=== PATIENT | female | born 1995 | race African-American/Black ===

== ENCOUNTER 2022-11-29 20:45 | Inpatient (IN) | payer OTHER ==
[2022-11-29] MEDS ORDERED: ELECTROLYTE-148 SOLN 1,000 ML IV ONE (21:45)
[2022-11-29] MEDS ORDERED: DINOPROSTONE 10 MG VAGINAL SUPPOSITORY VG ONE (21:45)
[2022-11-29 21:58] VITALS: BMI 27.8
[2022-11-29] MEDS ORDERED: ZOLPIDEM TARTRATE 5 MG TABLET PO ONE (22:00)
[2022-11-30] MEDS ORDERED: AMPICILLIN SODIUM 2 GM VIAL ONE (03:48)
[2022-11-30] MEDS ORDERED: ZOLPIDEM TARTRATE 5 MG TABLET ONE (03:58)
[2022-11-30] MEDS ORDERED: AMPICILLIN - 2 GM in SODIUM CHLORIDE 100 ML IVPB ONE (04:00)
[2022-11-30] MEDS ORDERED: ELECTROLYTE-148 SOLN 1,000 ML IV SCH (04:00)
[2022-11-30] MEDS ORDERED: PROMETHAZINE HCL 25 MG/1 ML VIAL IVPB ONE (06:00)
[2022-11-30] MEDS ORDERED: BUTORPHANOL TARTRATE 1 MG/ML VIAL IVPB ONE (06:00)
[2022-11-30] MEDS: AMPICILLIN - 1 GM in SODIUM CHLORIDE 100 ML IVPB SCH ×3 (09:00→16:10)
[2022-11-30] MEDS ORDERED: OXYTOCIN 30 UNITS in 0.9% NS 30 UNIT/500 ML INFUS.BAG IVPB SCH (09:45)
[2022-11-30] MEDS ORDERED: AMPICILLIN SODIUM 1 GM VIAL ONE ×3 (10:06→15:58)
[2022-11-30] MEDS ORDERED: OXYTOCIN 30 UNITS in 0.9% NS 30 UNIT/500 ML INFUS.BAG IVPB ONE (10:06)
[2022-11-30] MEDS ORDERED: OXYTOCIN 20 UNITS in 0.9% NS 20 UNIT/1,000 ML INFUS.BAG IV ONE (15:29)
[2022-11-30] MEDS ORDERED: LIDOCAINE HCL 1% PRESERVATIVE FREE - 30ML VIAL ONE (15:29)
[2022-11-30] MEDS ORDERED: morphine SULFATE/PF 1 MG/2 ML (2cc Syringe - QUVA) ONE (19:01)
[2022-11-30] MEDS ORDERED: FENTANYL CITRATE/PF 50 MCG/ML VIAL ONE (19:01)
[2022-11-30] MEDS ORDERED: OXYTOCIN 10 UNITS/ML VIAL ONE (20:29)
[2022-11-30] MEDS ORDERED: KETOROLAC TROMETHAMINE 60 MG/2 ML VIAL ONE (20:29)
[2022-11-30] MEDS ORDERED: ONDANSETRON 4 MG/2 ML VIAL ONE (20:29)
[2022-11-30] MEDS ORDERED: ceFAZolin SODIUM 1 GM VIAL ONE (20:29)
[2022-11-30] MEDS ORDERED: ONDANSETRON 4 MG/2 ML VIAL IVPB PRN (20:57)
[2022-11-30] MEDS ORDERED: SENNOSIDES/DOCUSATE COMBO (SENNA PLUS) TABLET (UD) PO PRN (20:57)
[2022-11-30] MEDS ORDERED: ACETAMINOPHEN INJECTION 100 ML IVPB ONE (21:57)
[2022-11-30] MEDS: ACETAMINOPHEN 1000 MG/100 ML BAG IVPB SCH (22:00)
[2022-11-30] MEDS: OXYTOCIN 20 UNITS in 0.9% NS 20 UNIT/1,000 ML INFUS.BAG IV SCH (22:45)
[2022-11-30] MEDS ORDERED: LABETALOL HCL 100 MG TABLET (FP) ONE (22:58)
[2022-11-30] MEDS ORDERED: LABETALOL HCL 200 MG TABLET (FP) PO ONE (23:00)
[2022-12-01] MEDS: ACETAMINOPHEN 1000 MG/100 ML BAG IVPB SCH ×3 (03:47→17:03)
[2022-12-01] MEDS: CEFAZOLIN SODIUM 2 GM in DEXTROSE 5%-WATER 100 ML IVPB SCH ×3 (04:05→20:49)
[2022-12-01] MEDS: IBUPROFEN 800 MG/8 ML IJ IVPB SCH ×3 (05:58→21:48)
[2022-12-01] MEDS: SIMETHICONE 80 MG TAB.CHEW (FP) PO PRN ×2 (05:59→20:49)
[2022-12-01 08:27] LABS: BASO % 0.3 % (0-2.0); HEMATOCRIT 28.7 % (32.4-45.2); HEMOGLOBIN 9.3 GM/dL (10.7-15.3); LYMPH % 10.7 % (8-40); MCH 30.9 pg (25.7-33.7); MCHC 32.5 g/dl (32.0-36.0); MEAN CELL VOLUME 94.9 fl (80-96); MEAN PLT VOLUME 12.1 fl (7.5-11.1); MONO % 7.8 % (3.8-10.2); NEUT % 81.2 % (42.8-82.8); PLATELET COUNT 99 10^3/uL (134-434); RBC 3.03 M/mm3 (3.60-5.2); RDW 14.5 % (11.6-15.6); WHITE BLOOD COUNT 13.8 K/mm3 (4.0-10.0)
[2022-12-01] MEDS: DOCUSATE SODIUM 100 MG CAPSULE (FP) PO SCH ×3 (09:36→22:16)
[2022-12-01] MEDS: OXYTOCIN 20 UNITS in 0.9% NS 20 UNIT/1,000 ML INFUS.BAG IV SCH (11:30)
[2022-12-01] MEDS ORDERED: oxyCODONE HCL 5 MG TABLET PO PRN (19:00)
[2022-12-01] MEDS ORDERED: BISACODYL 10 MG SUPP.RECT RC PRN (20:57)
[2022-12-01] MEDS ORDERED: LABETALOL HCL 200 MG TABLET (FP) PO ONE (22:15)
[2022-12-01] MEDS: HEPARIN NA (PORCINE) 5,000 UNITS/ML 1ML VIAL SQ SCH (22:16)
[2022-12-01] MEDS: AMPICILLIN - 1 GM in SODIUM CHLORIDE 100 ML IVPB SCH (23:02)
[2022-12-02] MEDS: DOCUSATE SODIUM 100 MG CAPSULE (FP) PO SCH ×3 (06:44→21:32)
[2022-12-02] MEDS: IBUPROFEN 600 MG TABLET (FP) PO PRN ×3 (08:53→21:31)
[2022-12-02] MEDS: SIMETHICONE 80 MG TAB.CHEW (FP) PO PRN ×2 (08:54→21:32)
[2022-12-02] MEDS: HEPARIN NA (PORCINE) 5,000 UNITS/ML 1ML VIAL SQ SCH ×2 (10:51→22:25)
[2022-12-02] MEDS: ACETAMINOPHEN 500 MG TABLET (FP) PO PRN ×2 (10:52→18:23)
[2022-12-02] MEDS: FERROUS SO4 325 MG TABLET (FP) PO SCH (17:55)
[2022-12-02] MEDS: OXYTOCIN 20 UNITS in 0.9% NS 20 UNIT/1,000 ML INFUS.BAG IV SCH (20:24)
[2022-12-02 21:52] LABS: BASO % 0.4 % (0-2.0); EOS % 0.8 % (0-4.5); HEMATOCRIT 29.6 % (32.4-45.2); HEMOGLOBIN 9.8 GM/dL (10.7-15.3); LYMPH % 15.3 % (8-40); MCH 30.6 pg (25.7-33.7); MCHC 33.1 g/dl (32.0-36.0); MEAN CELL VOLUME 92.7 fl (80-96); MEAN PLT VOLUME 10.3 fl (7.5-11.1); MONO % 7.2 % (3.8-10.2); NEUT % 76.3 % (42.8-82.8); PLATELET COUNT 152 10^3/uL (134-434); RDW 14.4 % (11.6-15.6); WHITE BLOOD COUNT 12.8 K/mm3 (4.0-10.0)
[2022-12-03] MEDS: SIMETHICONE 80 MG TAB.CHEW (FP) PO PRN ×2 (03:22→19:15)
[2022-12-03] MEDS: IBUPROFEN 600 MG TABLET (FP) PO PRN ×2 (06:15→19:15)
[2022-12-03] MEDS: DOCUSATE SODIUM 100 MG CAPSULE (FP) PO SCH ×3 (06:15→21:13)
[2022-12-03] MEDS: FERROUS SO4 325 MG TABLET (FP) PO SCH ×2 (08:25→17:06)
[2022-12-03] MEDS: ACETAMINOPHEN 500 MG TABLET (FP) PO PRN (10:05)
[2022-12-03] MEDS: HEPARIN NA (PORCINE) 5,000 UNITS/ML 1ML VIAL SQ SCH ×2 (10:06→21:13)
[2022-12-03] MEDS ORDERED: LABETALOL HCL 100 MG TABLET (FP) PO PRN (10:12)
[2022-12-03] MEDS ORDERED: LABETALOL HCL 200 MG TABLET (FP) PO PRN ×3 (15:40→21:41)
[2022-12-03] MEDS ORDERED: LABETALOL HCL 100 MG TABLET (FP) PO STA (15:41)
[2022-12-03] MEDS ORDERED: LABETALOL HCL 100 MG TABLET (FP) PO ONE (21:15)
[2022-12-04] MEDS: IBUPROFEN 600 MG TABLET (FP) PO PRN ×2 (01:31→19:30)
[2022-12-04] MEDS: LABETALOL HCL 100 MG TABLET (FP) PO PRN ×3 (01:32→19:30)
[2022-12-04] MEDS: DOCUSATE SODIUM 100 MG CAPSULE (FP) PO SCH ×3 (06:54→22:00)
[2022-12-04] MEDS ORDERED: NIFEdipine 10 MG CAPSULE (FP) PO ONE (07:00)
[2022-12-04] MEDS ORDERED: MAGNESIUM 4GM/H20 - 4 GM/100 ML IVPB IVPB SCH ×2 (07:45→07:48)
[2022-12-04] MEDS ORDERED: SODIUM CHLORIDE 1,000 ML IV SCH ×2 (08:00→23:30)
[2022-12-04] MEDS ORDERED: MAGNESIUM 4GM/H20 - 4 GM/100 ML IVPB IVPB ONE (08:06)
[2022-12-04 08:09] LABS: HEMOGLOBIN 9.9 GM/dL (10.7-15.3); MCH 31.7 pg (25.7-33.7); MCHC 34.1 g/dl (32.0-36.0); MEAN CELL VOLUME 92.8 fl (80-96); MEAN PLT VOLUME 9.8 fl (7.5-11.1); PLATELET COUNT 196 10^3/uL (134-434); RBC 3.12 M/mm3 (3.60-5.2); RDW 14.5 % (11.6-15.6); WHITE BLOOD COUNT 10.4 K/mm3 (4.0-10.0)
[2022-12-04 08:31] LABS: POTASSIUM 3.1 mmol/L (3.5-5.1)
[2022-12-04 08:34] LABS: ALBUMIN 2.5 g/dl (3.4-5.0); BLOOD UREA NITROGEN 4.7 mg/dL (7-18); CALCIUM 8.1 mg/dL (8.5-10.1)
[2022-12-04 08:37] LABS: CREATININE 0.4 mg/dL (0.55-1.3)
[2022-12-04 08:39] LABS: BILIRUBIN,TOTAL 0.4 mg/dL (0.2-1); TOT PROT 6.1 g/dl (6.4-8.2)
[2022-12-04] MEDS ORDERED: MAGNESIUM SULFATE 20GM/500ML - 20 GM/500 ML INFUS.BAG ONE ×2 (08:53→18:39)
[2022-12-04] MEDS: MAGNESIUM SULFATE 20GM/500ML - 20 GM/500 ML INFUS.BAG IVPB SCH ×3 (09:00→18:48)
[2022-12-04] MEDS ORDERED: FERROUS SO4 325 MG TABLET (FP) ONE ×2 (09:09→19:19)
[2022-12-04] MEDS: FERROUS SO4 325 MG TABLET (FP) PO SCH ×2 (09:13→19:30)
[2022-12-04] MEDS ORDERED: LABETALOL HCL 100 MG TABLET (FP) ONE ×2 (11:27→19:20)
[2022-12-04] MEDS: HEPARIN NA (PORCINE) 5,000 UNITS/ML 1ML VIAL SQ SCH ×2 (12:55→22:00)
[2022-12-04] MEDS ORDERED: ACETAMINOPHEN 500 MG TABLET (FP) ONE (15:20)
[2022-12-04] MEDS: ACETAMINOPHEN 500 MG TABLET (FP) PO PRN (15:25)
[2022-12-04] MEDS ORDERED: IBUPROFEN 600 MG TABLET (FP) PO ONE ×2 (18:13→19:20)
[2022-12-05] MEDS ORDERED: MAGNESIUM SULFATE 20GM/500ML - 20 GM/500 ML INFUS.BAG ONE (03:27)
[2022-12-05] MEDS: LABETALOL HCL 100 MG TABLET (FP) PO PRN (05:00)
[2022-12-05] MEDS: MAGNESIUM SULFATE 20GM/500ML - 20 GM/500 ML INFUS.BAG IVPB SCH (05:00)
[2022-12-05] MEDS ORDERED: LABETALOL HCL 100 MG TABLET (FP) ONE (05:02)
[2022-12-05] MEDS ORDERED: IBUPROFEN 600 MG TABLET (FP) PO ONE (05:05)
[2022-12-05] MEDS: IBUPROFEN 600 MG TABLET (FP) PO PRN (05:10)
[2022-12-05] MEDS: DOCUSATE SODIUM 100 MG CAPSULE (FP) PO SCH ×3 (06:05→21:59)
[2022-12-05] MEDS: NIFEdipine E.R. 30 MG TABLET PO SCH ×2 (07:30→10:11)
[2022-12-05 08:43] VITALS: RESP 18
[2022-12-05] MEDS: FERROUS SO4 325 MG TABLET (FP) PO SCH ×2 (09:10→17:43)
[2022-12-05] MEDS ORDERED: FERROUS SO4 325 MG TABLET (FP) ONE (09:17)
[2022-12-05] MEDS: HEPARIN NA (PORCINE) 5,000 UNITS/ML 1ML VIAL SQ SCH ×3 (10:12→22:00)
[2022-12-05] MEDS ORDERED: ACETAMINOPHEN 500 MG TABLET (FP) ONE (10:40)
[2022-12-05] MEDS: ACETAMINOPHEN 500 MG TABLET (FP) PO PRN (10:40)
[2022-12-05] MEDS: LABETALOL HCL 200 MG TABLET (FP) PO SCH ×2 (13:42→22:20)
[2022-12-05] MEDS ORDERED: ACETAMINOPHEN 325 MG TABLET (FP) PO ONE (22:30)
[2022-12-05] MEDS ORDERED: NIFEdipine 10 MG CAPSULE (FP) PO ONE (22:30)
[2022-12-06] MEDS: DOCUSATE SODIUM 100 MG CAPSULE (FP) PO SCH ×2 (06:14→13:34)
[2022-12-06] MEDS: LABETALOL HCL 200 MG TABLET (FP) PO SCH ×2 (06:14→13:34)
[2022-12-06] MEDS: FERROUS SO4 325 MG TABLET (FP) PO SCH (09:35)
[2022-12-06] MEDS: ACETAMINOPHEN 500 MG TABLET (FP) PO PRN (09:37)
[2022-12-06] MEDS: HEPARIN NA (PORCINE) 5,000 UNITS/ML 1ML VIAL SQ SCH (09:38)
[2022-12-06] MEDS ORDERED: NIFEdipine E.R 60 MG TABLET PO SCH (10:00)
[2022-12-06 13:21] VITALS: BP 125/79; PULSE 94; TEMP 98.5
== END 2022-12-06 15:22 | disposition home health service (06) | DRG 540 ==
LOC: JLDR 20:45 → J3W 11-30 23:58 → JLDR 12-04 09:20 → J3W 12-05 10:45
PROVIDERS: ADMIT Specialist; ATTEND Specialist
PROC: 10D00Z1 Extraction of Products of Conception, Low, Open Approach (ICD-10-PCS; principal; 2022-11-30)
DX: O62.1 Secondary uterine inertia (principal); O62.0 Primary inadequate contractions; O36.63X0 Maternal care for excessive fetal growth, third trimester, not applicable or unspecified; Z3A.39 39 weeks gestation of pregnancy; Z37.0 Single live birth; O14.95 Unspecified pre-eclampsia, complicating the puerperium
CPT/HCPCS: 36415; 59025; 80053; 83735; 85025; 85027; 86850; 86900; 86901; 88307-TC; J1644